=== PATIENT | female | born 1945 | race Hispanic/Latino ===

== ENCOUNTER 2020-10-13 07:55 | Day surgery (SDC) | payer MEDICARE ==
[2020-10-13] MEDS ORDERED: IODIXANOL 320 MG/ML 100 ML VIAL ONE (08:12)
[2020-10-13] MEDS ORDERED: LIDOCAINE HCL 1% MDV 50ML VIAL ONE (08:13)
[2020-10-13 08:23] LABS: BASOPHILS % (AUTO) 0.3 % (0.0-5.0); EOSINOPHILS % (AUTO) 1.5 % (0.0-8.0); HEMATOCRIT 43.4 % (36-48); LYMPHOCYTES % (AUTO) 26.8 % (21.0-51.0); MEAN CORPUSCULAR HEMOGLOBIN 26.7 pg (27.0-33.0); MEAN CORPUSCULAR HGB CONC 31.6 g/dL (32.0-36.0); MEAN CORPUSCULAR VOLUME 84.6 fL (79-99); MONOCYTES % (AUTO) 10.2 % (3.0-13.0); NEUTROPHILS % (AUTO) 60.9 % (40.0-77.0); PLATELET COUNT (AUTO) 213 K/uL (130-400); RED BLOOD CELL COUNT(AUTO) 5.13 MIL/uL (4.00-5.50); RED CELL DISTRIBUTION WIDTH 15.2 % (11.0-15.5)
[2020-10-13 08:32] LABS: POTASSIUM 3.9 mmol/L (3.5-5.1)
[2020-10-13 08:33] LABS: PROTHROMBIN TIME 10.9 SEC (9.6-11.6)
[2020-10-13 08:35] LABS: PARTIAL THROMBOPLASTIN TIME 25.3 SEC (26.3-35.5)
[2020-10-13 08:36] LABS: ALBUMIN 3.3 g/dL (3.5-5.0); BILIRUBIN,TOTAL 0.5 mg/dL (0.2-1.0); TOTAL PROTEIN, SERUM 7.1 g/dL (6.0-8.3)
[2020-10-13] MEDS ORDERED: SODIUM CHLORIDE 0.9% 1000ML 1,000 ML IV ONE (08:47)
== END 2020-10-13 11:10 | disposition home or self-care (01) ==
LOC: DAH 07:55
PROVIDERS: ATTEND Radiology Diagnostic Radiology
DX: I82.409 Acute embolism and thrombosis of unspecified deep veins of unspecified lower extremity (principal); E78.00 Pure hypercholesterolemia, unspecified; F32.9 Major depressive disorder, single episode, unspecified; G30.9 Alzheimer's disease, unspecified; F02.80 Dementia in other diseases classified elsewhere, unspecified severity, without behavioral disturbance, psychotic disturbance, mood disturbance, and anxiety; E03.9 Hypothyroidism, unspecified; E78.2 Mixed hyperlipidemia; E66.01 Morbid (severe) obesity due to excess calories; I13.0 Hypertensive heart and chronic kidney disease with heart failure and stage 1 through stage 4 chronic kidney disease, or unspecified chronic kidney disease; E11.22 Type 2 diabetes mellitus with diabetic chronic kidney disease; N18.2 Chronic kidney disease, stage 2 (mild); I50.32 Chronic diastolic (congestive) heart failure; G47.33 Obstructive sleep apnea (adult) (pediatric); E11.42 Type 2 diabetes mellitus with diabetic polyneuropathy; E11.51 Type 2 diabetes mellitus with diabetic peripheral angiopathy without gangrene; E11.319 Type 2 diabetes mellitus with unspecified diabetic retinopathy without macular edema; I87.329 Chronic venous hypertension (idiopathic) with inflammation of unspecified lower extremity; E11.65 Type 2 diabetes mellitus with hyperglycemia; E11.39 Type 2 diabetes mellitus with other diabetic ophthalmic complication; M17.0 Bilateral primary osteoarthritis of knee; Z79.4 Long term (current) use of insulin; Z82.49 Family history of ischemic heart disease and other diseases of the circulatory system; Z68.41 Body mass index [BMI] 40.0-44.9, adult; Z98.41 Cataract extraction status, right eye; Z98.42 Cataract extraction status, left eye; Z90.49 Acquired absence of other specified parts of digestive tract; Z98.890 Other specified postprocedural states; Z90.89 Acquired absence of other organs; Z83.3 Family history of diabetes mellitus; Z83.438 Family history of other disorder of lipoprotein metabolism and other lipidemia; Z84.1 Family history of disorders of kidney and ureter; Z82.0 Family history of epilepsy and other diseases of the nervous system; Z79.01 Long term (current) use of anticoagulants; Z79.899 Other long term (current) drug therapy
CPT/HCPCS: 36415; 37191; 80053; 82948 ×2; 85025; 85610; 85730; A4215; A4216; A4221; A4222; A4223 ×3; A4606; A4663; C1769; C1880; C1894; J1644; J3490; J7030; Q9967

== ENCOUNTER 2021-02-09 10:14 | Observation (INO) | payer MEDICARE ==
[2021-02-02 13:38] LABS: BASOPHILS % (AUTO) 0.4 % (0.0-5.0); EOSINOPHILS % (AUTO) 0.2 % (0.0-8.0); HEMATOCRIT 42.4 % (36-48); LYMPHOCYTES % (AUTO) 30.9 % (21.0-51.0); MEAN CORPUSCULAR HEMOGLOBIN 27.2 pg (27.0-33.0); MEAN CORPUSCULAR HGB CONC 32.3 g/dL (32.0-36.0); MEAN CORPUSCULAR VOLUME 84.3 fL (79-99); MONOCYTES % (AUTO) 9.3 % (3.0-13.0); NEUTROPHILS % (AUTO) 58.8 % (40.0-77.0); PLATELET COUNT (AUTO) 238 K/uL (130-400); RED BLOOD CELL COUNT(AUTO) 5.03 MIL/uL (4.00-5.50); RED CELL DISTRIBUTION WIDTH 14.5 % (11.0-15.5); WHITE BLOOD COUNT (AUTO) 5.7 K/uL (4.8-10.8)
[2021-02-02 13:47] LABS: CREATININE 0.9 mg/dL (0.5-1.5)
[2021-02-02 13:51] LABS: INR 1.07 (0.85-1.15); PROTHROMBIN TIME 11.6 SEC (9.6-11.6)
[2021-02-02 13:52] LABS: PARTIAL THROMBOPLASTIN TIME 30.2 SEC (26.3-35.5)
[2021-02-08 11:03] VITALS: BP 135/71
[~2021-02-09] VITALS: Ht 160 cm; Wt 102.6 kg
[2021-02-09] VITALS (21 sets, daily range): BP systolic 119–148; BP diastolic 51–66
[~2021-02-09 10:14] MED LIST: APIX5TAB PO; ATOR40TA69 PO; DULA0.75 SQ; FURO40TA5 PO; HYDR-4153 PO; INSU100I21 SQ; LEVO88CA4 PO; LISI20TA24 PO; MELA5CAP PO; NIFE-39 PO; POTA-9 PO; ROPIVICAINE 250MG+KETOROLAC 15MG+EPINEPHRINE 0.3+CLONIDINE 80 IV PRN; VITAD50000 PO; [UNRECOGNIZED DRUG - CODE] PO
[2021-02-09] MEDS ORDERED: 0.9%NACL 1000ML 1,000 ML IV ONE (12:56)
[2021-02-09] MEDS: CEFAZOLIN SODIUM 1 GM VIAL IVP SCH ×3 (13:00→20:10)
[2021-02-09] MEDS ORDERED: ROCURONIUM 10MG/1ML SYR 10 MG/ML ML ONE (13:16)
[2021-02-09] MEDS ORDERED: LIDOCAINE PF 100MG/5ML (2%) SYRINGE 5ML ONE (13:16)
[2021-02-09] MEDS ORDERED: SUCCINYLCHOLINE CHLORIDE 20 MG/ML 10 ML VIAL ONE (13:16)
[2021-02-09] MEDS ORDERED: FENTANYL CITRATE PF 50 MCG/1 ML 2ML VIAL ONE ×2 (13:16→15:42)
[2021-02-09] MEDS ORDERED: TRANEXAMIC ACID 1000MG/10ML ONE ×2 (13:16→13:17)
[2021-02-09] MEDS ORDERED: PROPOFOL 10 MG/ML 20ML VIAL IV ONE (13:16)
[2021-02-09] MEDS ORDERED: ROPIVACAINE 0.5% 5MG/ML 30ML IJ ONE (13:18)
[2021-02-09] MEDS ORDERED: MIDAZOLAM HCL 1 MG/ML 2ML VIAL ONE (14:49)
[2021-02-09] MEDS: ACETAMINOPHEN 500 MG TABLET PO SCH (15:30)
[2021-02-09] MEDS ORDERED: POTASSIUM CHLORIDE 20MEQ/100ML 100 ML IV PRN (15:30)
[2021-02-09] MEDS ORDERED: POTASSIUM CHLORIDE 10% ELIXIR 20 MEQ/15 ML UDCUP PO PRN (15:30)
[2021-02-09] MEDS ORDERED: HYDROCODONE/ACETAMINOPHEN 5/325 MG TAB PO PRN (15:30)
[2021-02-09] MEDS ORDERED: KCL 20 MEQ ERTAB PO PRN (15:30)
[2021-02-09] MEDS ORDERED: ONDANSETRON 4MG INJ IVP PRN (15:30)
[2021-02-09] MEDS ORDERED: LIDOCAINE HCL-MPF 1% 2ML VIAL IV PRN (15:30)
[2021-02-09] MEDS ORDERED: NEOSTIGMINE 5MG/5ML SYR IV ONE (16:58)
[2021-02-09] MEDS ORDERED: GLYCOPYRROLATE 1 MG/5 ML SYRINGE ONE (16:58)
[2021-02-09] MEDS ORDERED: MEPERIDINE-PF 25 MG/ML SYG ONE (17:32)
[2021-02-09] MEDS: 0.9%NACL 1000ML 1,000 ML IV SCH (18:35)
[2021-02-09] MEDS: TRAMADOL HCL 50 MG TABLET PO SCH (18:36)
[2021-02-09] MEDS: APIXABAN 5 MG TABLET PO SCH (20:11)
[2021-02-09] MEDS: MORPHINE 4 MG SYG IVP PRN (20:23)
[2021-02-09] MEDS: MELATONIN 5 MG PO SCH (21:00)
[2021-02-09] MEDS ORDERED: POTASSIUM CHLORIDE 10MEQ SR TAB PO SCH (21:00)
[2021-02-09] MEDS: INSULIN GLARGINE 100 UNITS/ML 10 ML VIAL SQ SCH (21:03)
[2021-02-09] MEDS: NIFEDIPINE ER 30 MG TAB PO SCH (21:05)
[2021-02-10] MEDS: LISINOPRIL 20 MG TABLET PO SCH ×3 (00:01→19:56)
[2021-02-10] MEDS: HYDRALAZINE 25MG TABLET PO SCH ×3 (00:01→19:57)
[2021-02-10] MEDS: TRAMADOL HCL 50 MG TABLET PO SCH ×4 (00:12→19:17)
[2021-02-10] MEDS: ACETAMINOPHEN 500 MG TABLET PO SCH ×4 (00:13→22:57)
[2021-02-10 00:36] VITALS: BP 139/59
[2021-02-10] MEDS: 0.9%NACL 1000ML 1,000 ML IV SCH ×2 (01:30→11:30)
[2021-02-10] MEDS: MORPHINE 4 MG SYG IVP PRN (01:53)
[2021-02-10] MEDS: CEFAZOLIN SODIUM 1 GM VIAL IVP SCH (04:28)
[2021-02-10 04:36] VITALS: BP 126/55
[2021-02-10 05:20] LABS: HEMATOCRIT 35.7 % (36-48); MEAN CORPUSCULAR HEMOGLOBIN 26.6 pg (27.0-33.0); MEAN CORPUSCULAR HGB CONC 32.2 g/dL (32.0-36.0); MEAN CORPUSCULAR VOLUME 82.6 fL (79-99); RED BLOOD CELL COUNT(AUTO) 4.32 MIL/uL (4.00-5.50); RED CELL DISTRIBUTION WIDTH 14.4 % (11.0-15.5); WHITE BLOOD COUNT (AUTO) 8.9 K/uL (4.8-10.8)
[2021-02-10 05:27] LABS: CREATININE 0.9 mg/dL (0.5-1.5); POTASSIUM 3.5 mmol/L (3.5-5.1)
[2021-02-10] MEDS ORDERED: LEVOTHYROXINE 88 MCG TABLET ONE (06:05)
[2021-02-10] MEDS: LEVOTHYROXINE 88 MCG TABLET PO SCH (06:13)
[2021-02-10] MEDS ORDERED: FUROSEMIDE 40 MG TABLET ONE (06:59)
[2021-02-10] MEDS: FUROSEMIDE 40 MG TABLET PO SCH (07:00)
[2021-02-10 07:52] VITALS: BP 133/51
[2021-02-10] MEDS: INSULIN GLARGINE 100 UNITS/ML 10 ML VIAL SQ SCH ×2 (08:00→20:01)
[2021-02-10] MEDS: APIXABAN 5 MG TABLET PO SCH ×2 (09:58→19:56)
[2021-02-10] MEDS: FAMOTIDINE 20MG TAB PO SCH (09:59)
[2021-02-10] MEDS: FENTANYL 25 MCG/HR PATCH TD SCH (10:00)
[2021-02-10] MEDS: POTASSIUM CHLORIDE 10MEQ SR TAB PO SCH (10:01)
[2021-02-10] MEDS: POLYETHYLENE GLYCOL 3350 17 GM POWD.PACK PO SCH (10:01)
[2021-02-10 11:18] VITALS: BP 115/50
[2021-02-10 16:15] VITALS: BP 125/71
[2021-02-10 19:52] VITALS: BP 114/52
[2021-02-10] MEDS: NIFEDIPINE ER 30 MG TAB PO SCH (19:56)
[2021-02-10] MEDS: MELATONIN 5 MG PO SCH (19:58)
[2021-02-11 00:10] VITALS: BP 127/52
[2021-02-11] MEDS: TRAMADOL HCL 50 MG TABLET PO SCH ×5 (00:43→22:38)
[2021-02-11 04:24] VITALS: BP 121/50
[2021-02-11] MEDS: LEVOTHYROXINE 88 MCG TABLET PO SCH (06:06)
[2021-02-11] MEDS: ACETAMINOPHEN 500 MG TABLET PO SCH ×3 (06:09→22:37)
[2021-02-11 08:09] VITALS: BP 123/51
[2021-02-11] MEDS: LISINOPRIL 20 MG TABLET PO SCH ×3 (08:24→21:00)
[2021-02-11] MEDS: HYDRALAZINE 25MG TABLET PO SCH ×3 (08:24→21:00)
[2021-02-11] MEDS: APIXABAN 5 MG TABLET PO SCH ×2 (08:24→20:46)
[2021-02-11] MEDS: POTASSIUM CHLORIDE 10MEQ SR TAB PO SCH (08:25)
[2021-02-11] MEDS: POLYETHYLENE GLYCOL 3350 17 GM POWD.PACK PO SCH (08:25)
[2021-02-11] MEDS: FAMOTIDINE 20MG TAB PO SCH (08:25)
[2021-02-11] MEDS: FUROSEMIDE 40 MG TABLET PO SCH (08:25)
[2021-02-11] MEDS: OXYCODONE HCL 5 MG TAB PO PRN ×2 (08:26→16:56)
[2021-02-11] MEDS: INSULIN GLARGINE 100 UNITS/ML 10 ML VIAL SQ SCH ×2 (08:30→20:48)
[2021-02-11 11:04] VITALS: BP 138/63
[2021-02-11 16:30] VITALS: BP 130/47
[2021-02-11 19:00] VITALS: BP 120/48
[2021-02-11] MEDS: NIFEDIPINE ER 30 MG TAB PO SCH (20:46)
[2021-02-11] MEDS: MELATONIN 5 MG PO SCH (20:47)
[2021-02-12] VITALS (7 sets, daily range): BP systolic 114–141; BP diastolic 46–65
[2021-02-12] MEDS: LEVOTHYROXINE 88 MCG TABLET PO SCH (05:25)
[2021-02-12] MEDS: TRAMADOL HCL 50 MG TABLET PO SCH ×4 (05:26→23:32)
[2021-02-12] MEDS: ACETAMINOPHEN 500 MG TABLET PO SCH ×3 (05:26→23:34)
[2021-02-12] MEDS: POLYETHYLENE GLYCOL 3350 17 GM POWD.PACK PO SCH (09:00)
[2021-02-12] MEDS: POTASSIUM CHLORIDE 10MEQ SR TAB PO SCH (09:00)
[2021-02-12] MEDS: HYDRALAZINE 25MG TABLET PO SCH ×2 (09:09→21:07)
[2021-02-12] MEDS: FUROSEMIDE 40 MG TABLET PO SCH (09:10)
[2021-02-12] MEDS: APIXABAN 5 MG TABLET PO SCH ×2 (09:11→21:05)
[2021-02-12] MEDS: FAMOTIDINE 20MG TAB PO SCH (09:11)
[2021-02-12] MEDS: LISINOPRIL 20 MG TABLET PO SCH ×2 (09:11→21:08)
[2021-02-12] MEDS: MORPHINE 4 MG SYG IVP PRN (09:12)
[2021-02-12] MEDS: INSULIN GLARGINE 100 UNITS/ML 10 ML VIAL SQ SCH ×2 (09:27→21:16)
[2021-02-12] MEDS ORDERED: BISACODYL 10 MG SUPP.RECT RC PRN (15:30)
[2021-02-12] MEDS: MELATONIN 5 MG PO SCH (21:00)
[2021-02-12] MEDS: NIFEDIPINE ER 30 MG TAB PO SCH (21:05)
[2021-02-12] MEDS: OXYCODONE HCL 5 MG TAB PO PRN (22:09)
[2021-02-13] MEDS: OXYCODONE HCL 5 MG TAB PO PRN ×3 (03:15→21:11)
[2021-02-13 04:10] VITALS: BP 120/55
[2021-02-13] MEDS: TRAMADOL HCL 50 MG TABLET PO SCH ×4 (05:40→23:47)
[2021-02-13] MEDS: ACETAMINOPHEN 500 MG TABLET PO SCH ×3 (05:40→16:55)
[2021-02-13] MEDS: LEVOTHYROXINE 88 MCG TABLET PO SCH (05:40)
[2021-02-13 08:00] VITALS: BP 114/49
[2021-02-13] MEDS: INSULIN GLARGINE 100 UNITS/ML 10 ML VIAL SQ SCH ×2 (08:00→21:07)
[2021-02-13] MEDS: HYDRALAZINE 25MG TABLET PO SCH ×2 (08:27→20:20)
[2021-02-13] MEDS: POLYETHYLENE GLYCOL 3350 17 GM POWD.PACK PO SCH (08:27)
[2021-02-13] MEDS: LISINOPRIL 20 MG TABLET PO SCH ×2 (08:27→20:20)
[2021-02-13] MEDS: POTASSIUM CHLORIDE 10MEQ SR TAB PO SCH (08:28)
[2021-02-13] MEDS: APIXABAN 5 MG TABLET PO SCH ×2 (08:28→20:20)
[2021-02-13] MEDS: FAMOTIDINE 20MG TAB PO SCH (08:28)
[2021-02-13] MEDS: FUROSEMIDE 40 MG TABLET PO SCH (08:28)
[2021-02-13] MEDS: FENTANYL 25 MCG/HR PATCH TD SCH (08:29)
[2021-02-13 10:52] LABS: APPEARANCE,URINE Clear (CLEAR); BILIRUBIN,URINE Negative (NEGATIVE); COLOR,URINE Yellow (YELLOW); GLUCOSE, URINE (UA) Negative (NEGATIVE); KETONES,URINE Negative (NEGATIVE); LEUKOCYTE ESTERASE ,URINE Trace (NEGATIVE); NITRATE,URINE Negative (NEGATIVE); OCCULT BLOOD,URINE Negative (NEGATIVE); PH,URINE 6.5 (5.0-8.0); PROTEIN,URINE Negative (NEGATIVE)
[2021-02-13 11:07] LABS: BACTERIA,URINE Rare /HPF (None Seen); RBC,URINE 0-1 /HPF (0-1); SQUAMOUS EPITHELIAL CELL,UR Rare /HPF (0-2); WBC,URINE 0-1 /HPF (0-1)
[2021-02-13 11:53] VITALS: BP 136/52
[2021-02-13 16:00] VITALS: BP 132/54
[2021-02-13 19:39] VITALS: BP 140/54
[2021-02-13] MEDS: NIFEDIPINE ER 30 MG TAB PO SCH (20:19)
[2021-02-13] MEDS: MELATONIN 5 MG PO SCH (21:00)
[2021-02-13 23:52] VITALS: BP 138/52
[2021-02-14] MEDS: OXYCODONE HCL 5 MG TAB PO PRN ×2 (02:28→09:19)
[2021-02-14 03:39] VITALS: BP 141/69
[2021-02-14] MEDS: ACETAMINOPHEN 500 MG TABLET PO SCH (03:44)
[2021-02-14] MEDS: LEVOTHYROXINE 88 MCG TABLET PO SCH (05:21)
[2021-02-14] MEDS: TRAMADOL HCL 50 MG TABLET PO SCH ×2 (05:21→11:44)
[2021-02-14 08:00] VITALS: BP 133/50
[2021-02-14] MEDS: POTASSIUM CHLORIDE 10MEQ SR TAB PO SCH (09:11)
[2021-02-14] MEDS: FUROSEMIDE 40 MG TABLET PO SCH (09:11)
[2021-02-14] MEDS: LISINOPRIL 20 MG TABLET PO SCH ×2 (09:12→19:47)
[2021-02-14] MEDS: FAMOTIDINE 20MG TAB PO SCH (09:12)
[2021-02-14] MEDS: APIXABAN 5 MG TABLET PO SCH ×2 (09:12→19:46)
[2021-02-14] MEDS: HYDRALAZINE 25MG TABLET PO SCH ×2 (09:12→19:46)
[2021-02-14] MEDS: POLYETHYLENE GLYCOL 3350 17 GM POWD.PACK PO SCH (09:12)
[2021-02-14] MEDS: INSULIN GLARGINE 100 UNITS/ML 10 ML VIAL SQ SCH ×2 (09:16→20:59)
[2021-02-14 12:00] VITALS: BP 156/86
[2021-02-14] MEDS ORDERED: HYDROCODONE/ACETAMINOPHEN 5/325 MG TAB PO SCH ×2 (15:00→18:00)
[2021-02-14 16:00] VITALS: BP 141/62
[2021-02-14] MEDS: INSULIN HUMULIN R 100 UNIT/ML 3ML SQ SCH ×2 (16:30→21:00)
[2021-02-14 19:00] VITALS: BP 147/53
[2021-02-14] MEDS ORDERED: HYDROCODONE/ACETAMINOPHEN 5/325 MG TAB ONE (19:41)
[2021-02-14] MEDS: NIFEDIPINE ER 30 MG TAB PO SCH (19:46)
[2021-02-14] MEDS: HYDROCODONE/ACETAMINOPHEN 5/325 MG TAB PO SCH (19:48)
[2021-02-14] MEDS: MELATONIN 5 MG PO SCH (20:44)
[2021-02-14 23:57] VITALS: BP 125/51
[2021-02-15] MEDS: HYDROCODONE/ACETAMINOPHEN 5/325 MG TAB PO SCH ×4 (02:06→20:17)
[2021-02-15 03:45] VITALS: BP 150/58
[2021-02-15] MEDS: LEVOTHYROXINE 88 MCG TABLET PO SCH (05:31)
[2021-02-15] MEDS: INSULIN HUMULIN R 100 UNIT/ML 3ML SQ SCH ×4 (05:41→20:12)
[2021-02-15 07:30] VITALS: BP 148/56
[2021-02-15] MEDS: APIXABAN 5 MG TABLET PO SCH ×2 (08:34→20:14)
[2021-02-15] MEDS: LISINOPRIL 20 MG TABLET PO SCH ×2 (08:35→20:14)
[2021-02-15] MEDS: HYDRALAZINE 25MG TABLET PO SCH ×2 (08:35→20:14)
[2021-02-15] MEDS: FUROSEMIDE 40 MG TABLET PO SCH (08:37)
[2021-02-15] MEDS: FAMOTIDINE 20MG TAB PO SCH (08:37)
[2021-02-15] MEDS: POLYETHYLENE GLYCOL 3350 17 GM POWD.PACK PO SCH (08:37)
[2021-02-15] MEDS: POTASSIUM CHLORIDE 10MEQ SR TAB PO SCH (08:37)
[2021-02-15] MEDS: INSULIN GLARGINE 100 UNITS/ML 10 ML VIAL SQ SCH (08:43)
[2021-02-15] MEDS ORDERED: DULOXETINE HCL 30 MG CAP PO SCH (09:00)
[2021-02-15 11:00] VITALS: BP 136/48
[2021-02-15 16:00] VITALS: BP 135/55
[2021-02-15] MEDS: NIFEDIPINE ER 30 MG TAB PO SCH (20:14)
[2021-02-15] MEDS: MELATONIN 5 MG PO SCH (20:17)
[2021-02-15 20:34] VITALS: BP 157/72
[2021-02-15 23:29] VITALS: BP 143/58
[2021-02-16] MEDS ORDERED: **HM**(Dulaglutide (Trulicity) 0.75 MG SQ SCH (09:00)
== END 2021-02-16 00:57 ==
LOC: DAH 10:14 → DAHIP 10:15 → EDSTATUS 12:33 → 4BH 18:31
PROVIDERS: ADMIT Orthopaedic Surgery; ATTEND Orthopaedic Surgery
DX: M17.11 Unilateral primary osteoarthritis, right knee (principal); Z20.822 Contact with and (suspected) exposure to COVID-19; M21.061 Valgus deformity, not elsewhere classified, right knee; E66.01 Morbid (severe) obesity due to excess calories; E11.9 Type 2 diabetes mellitus without complications; I10 Essential (primary) hypertension; E78.00 Pure hypercholesterolemia, unspecified; Z79.01 Long term (current) use of anticoagulants; Z79.899 Other long term (current) drug therapy; Z68.41 Body mass index [BMI] 40.0-44.9, adult
CPT/HCPCS: 27447; 36415 ×2; 73560 ×2; 73562; 80048 ×2; 81001 ×2; 82948 ×26; 85025; 85027; 85610; 85730; 87635; 87641 ×2; 93005; 96361 ×2; 96374; 96375; 96376 ×2; 97039 ×10; 97116 ×9; 97161; 97530 ×8; A4213; A4215; A4216; A4221; A4222; A4223 ×2; A4600; A4649 ×6; A4663; A4930; A5120; A6212; A6219; A6260; C1776; C9803; G0378 ×147; J0171; J0330; J0690 ×3; J0735; J1885; J2001; J2175; J2250; J2270 ×3; J2704; J2710; J2795 ×2; J3010 ×2; J3490 ×3; J7030

== ENCOUNTER 2021-11-02 06:09 | Observation (INO) | payer OTHER ==
[2021-10-28 12:23] LABS: BASOPHILS % (AUTO) 0.5 % (0.0-5.0); EOSINOPHILS % (AUTO) 0.2 % (0.0-8.0); LYMPHOCYTES % (AUTO) 27.6 % (21.0-51.0); MEAN CORPUSCULAR HEMOGLOBIN 26.1 pg (27.0-33.0); MEAN CORPUSCULAR HGB CONC 31.7 g/dL (32.0-36.0); MEAN CORPUSCULAR VOLUME 82.2 fL (79-99); NEUTROPHILS % (AUTO) 60.5 % (40.0-77.0); PLATELET COUNT (AUTO) 230 K/uL (130-400); RED BLOOD CELL COUNT(AUTO) 4.99 MIL/uL (4.00-5.50); RED CELL DISTRIBUTION WIDTH 14.1 % (11.0-15.5); WHITE BLOOD COUNT (AUTO) 5.8 K/uL (4.8-10.8)
[2021-10-28 12:31] LABS: CREATININE 0.7 mg/dL (0.5-1.5); POTASSIUM 4.4 mmol/L (3.5-5.1)
[2021-10-28 12:33] LABS: INR 0.99 (0.85-1.15); PROTHROMBIN TIME 10.8 SEC (9.6-11.6)
[2021-10-28 12:35] LABS: PARTIAL THROMBOPLASTIN TIME 29.6 SEC (26.3-35.5)
[2021-11-01 11:16] VITALS: BP_SYST 179; BP_SYST 202; BP_DIAS 101; BP_DIAS 77
[2021-11-02] VITALS (25 sets, daily range): BP systolic 147–173; BP diastolic 56–83
[~2021-11-02] VITALS: Ht 162.6 cm; Wt 97.1 kg
[2021-11-02] MEDS: CEFAZOLIN SODIUM 2 GM VIAL IV SCH ×2 (05:00→10:10)
[~2021-11-02 06:09] MED LIST changes: +CALC-1105 PO; -INSU100I21 SQ; +INSU3INS3 SQ; -LISI20TA24 PO; +POTA-10 PO; -POTA-9 PO; -[UNRECOGNIZED DRUG - CODE] PO
[2021-11-02] MEDS ORDERED: CEFAZOLIN SODIUM 1 GM VIAL ONE (07:21)
[2021-11-02] MEDS ORDERED: 0.9%NACL 1000ML 1,000 ML IV ONE (07:21)
[2021-11-02] MEDS ORDERED: GABA300C PO (07:38)
[2021-11-02] MEDS ORDERED: DULO60CA64 PO (07:38)
[2021-11-02] MEDS ORDERED: SODI15DR8 OU (07:38)
[2021-11-02] MEDS ORDERED: LIDOCAINE PF 100MG/5ML (2%) SYRINGE 5ML ONE (07:52)
[2021-11-02] MEDS ORDERED: SUCCINYLCHOLINE CHLORIDE 20 MG/ML 10 ML VIAL ONE (07:52)
[2021-11-02] MEDS ORDERED: ONDANSETRON 4MG INJ ONE (07:52)
[2021-11-02] MEDS ORDERED: SUCCINYLCHOLINE 200MG/10ML SYR ONE (07:52)
[2021-11-02] MEDS ORDERED: NEOSTIGMINE 5MG/5ML SYR IV ONE (07:53)
[2021-11-02] MEDS ORDERED: PROPOFOL 10 MG/ML 20ML VIAL IV ONE (07:53)
[2021-11-02] MEDS ORDERED: GLYCOPYRROLATE 1 MG/5 ML SYRINGE ONE (07:53)
[2021-11-02] MEDS ORDERED: DEXAMETHASONE SOD PHOSPHATE 10MG/ML 1ML VIAL ONE (07:53)
[2021-11-02] MEDS ORDERED: ROCURONIUM 10MG/1ML SYR 10 MG/ML ML ONE (07:53)
[2021-11-02] MEDS ORDERED: MIDAZOLAM HCL 1 MG/ML 2ML VIAL ONE (07:53)
[2021-11-02] MEDS ORDERED: FENTANYL CITRATE PF 50 MCG/1 ML 2ML VIAL ONE ×2 (07:54→11:55)
[2021-11-02] MEDS ORDERED: TRANEXAMIC ACID 1000MG/10ML ONE (07:55)
[2021-11-02] MEDS: ACETAMINOPHEN 500 MG TABLET PO SCH ×2 (10:30→18:42)
[2021-11-02] MEDS ORDERED: KCL 20 MEQ ERTAB PO PRN (10:30)
[2021-11-02] MEDS ORDERED: POTASSIUM CHLORIDE 10% ELIXIR 20 MEQ/15 ML UDCUP PO PRN (10:30)
[2021-11-02] MEDS ORDERED: LIDOCAINE HCL-MPF 1% 2ML VIAL IV PRN (10:30)
[2021-11-02] MEDS ORDERED: HYDROCODONE/ACETAMINOPHEN 10/325 MG TAB PO PRN (10:30)
[2021-11-02] MEDS ORDERED: ONDANSETRON 4MG INJ IVP PRN (10:30)
[2021-11-02] MEDS ORDERED: POTASSIUM CHLORIDE 20MEQ/100ML 100 ML IV PRN (10:30)
[2021-11-02] MEDS ORDERED: KETOROLAC 15MG/ML VIAL (15MG/ML) IV PRN (10:30)
[2021-11-02] MEDS ORDERED: HYDROCODONE/ACETAMINOPHEN 5/325 MG TAB PO PRN (10:30)
[2021-11-02] MEDS: 0.9%NACL 1000ML 1,000 ML IV SCH ×2 (10:30→20:30)
[2021-11-02] MEDS: INSULIN HUMULIN R 100 UNIT/ML 3ML SQ SCH ×3 (11:30→20:32)
[2021-11-02] MEDS ORDERED: KETOROLAC 30MG VIAL (30MG/ML) ONE (11:40)
[2021-11-02] MEDS: TRAMADOL HCL 50 MG TABLET PO SCH ×3 (12:00→23:52)
[2021-11-02] MEDS ORDERED: LABETALOL 20MG SYG IV ONE (12:52)
[2021-11-02] MEDS: MORPHINE 4 MG SYG IVP PRN ×2 (14:45→18:47)
[2021-11-02] MEDS: CEFAZOLIN SODIUM 1 GM VIAL IVP SCH ×2 (18:41→23:51)
[2021-11-02] MEDS: GABAPENTIN 300 MG CAPSULE PO SCH (20:31)
[2021-11-02] MEDS: HYDRALAZINE 25MG TABLET PO SCH (20:31)
[2021-11-02] MEDS: FAMOTIDINE 20MG TAB PO SCH (20:31)
[2021-11-02] MEDS: NIFEDIPINE ER 30 MG TAB PO SCH (20:31)
[2021-11-02] MEDS: **HM** MELATONIN 5MG PO SCH (20:32)
[2021-11-02] MEDS: APIXABAN 5 MG TABLET PO SCH (20:32)
[2021-11-03] VITALS: BP 183/84
[2021-11-03] MEDS: MORPHINE 4 MG SYG IVP PRN (02:01)
[2021-11-03] MEDS: ACETAMINOPHEN 500 MG TABLET PO SCH ×3 (02:01→17:09)
[2021-11-03] MEDS: CEFAZOLIN SODIUM 2 GM VIAL IV SCH (02:52)
[2021-11-03 03:35] LABS: HEMATOCRIT 39.3 % (36-48); MEAN CORPUSCULAR HEMOGLOBIN 25.6 pg (27.0-33.0); MEAN CORPUSCULAR HGB CONC 31.6 g/dL (32.0-36.0); RED BLOOD CELL COUNT(AUTO) 4.85 MIL/uL (4.00-5.50); RED CELL DISTRIBUTION WIDTH 14.1 % (11.0-15.5); WHITE BLOOD COUNT (AUTO) 10.1 K/uL (4.8-10.8)
[2021-11-03 03:45] LABS: CREATININE 0.8 mg/dL (0.5-1.5)
[2021-11-03 04:00] VITALS: BP 153/84
[2021-11-03] MEDS: TRAMADOL HCL 50 MG TABLET PO SCH ×3 (05:55→17:09)
[2021-11-03] MEDS: 0.9%NACL 1000ML 1,000 ML IV SCH (05:56)
[2021-11-03] MEDS: INSULIN HUMULIN R 100 UNIT/ML 3ML SQ SCH ×4 (06:45→21:00)
[2021-11-03 08:00] VITALS: BP 148/67
[2021-11-03] MEDS: SODIUM CHLORIDE 5% 15 ML OPHTH SOLN OU SCH (09:00)
[2021-11-03] MEDS: HYDRALAZINE 25MG TABLET PO SCH ×2 (09:57→22:15)
[2021-11-03] MEDS: FAMOTIDINE 20MG TAB PO SCH ×2 (09:57→22:14)
[2021-11-03] MEDS: LEVOTHYROXINE 88 MCG TABLET PO SCH (09:57)
[2021-11-03] MEDS: APIXABAN 5 MG TABLET PO SCH ×2 (09:57→22:14)
[2021-11-03] MEDS: DULOXETINE HCL 30 MG CAP PO SCH (09:57)
[2021-11-03] MEDS: CA 600MG+VIT D 400 UNIT TAB 1 TAB TABLET PO SCH (09:57)
[2021-11-03] MEDS: POLYETHYLENE GLYCOL 3350 17 GM POWD.PACK PO SCH (09:58)
[2021-11-03] MEDS: INSULIN GLARGINE 100 UNITS/ML 10 ML VIAL SQ SCH (10:08)
[2021-11-03 12:00] VITALS: BP 173/71
[2021-11-03 16:30] VITALS: BP 154/68
[2021-11-03] MEDS: **HM** MELATONIN 5MG PO SCH (21:00)
[2021-11-03 21:51] VITALS: BP 139/52
[2021-11-03] MEDS: GABAPENTIN 300 MG CAPSULE PO SCH (22:15)
[2021-11-03] MEDS: NIFEDIPINE ER 30 MG TAB PO SCH (22:15)
[2021-11-04 00:24] VITALS: BP 140/63
[2021-11-04] MEDS: TRAMADOL HCL 50 MG TABLET PO SCH ×3 (00:25→12:26)
[2021-11-04] MEDS: ACETAMINOPHEN 500 MG TABLET PO SCH ×2 (02:30→10:58)
[2021-11-04 04:15] VITALS: BP 167/68
[2021-11-04 07:30] VITALS: BP 150/62
[2021-11-04] MEDS: INSULIN HUMULIN R 100 UNIT/ML 3ML SQ SCH ×3 (07:30→16:30)
[2021-11-04] MEDS: LEVOTHYROXINE 88 MCG TABLET PO SCH (07:54)
[2021-11-04] MEDS: SODIUM CHLORIDE 5% 15 ML OPHTH SOLN OU SCH (09:00)
[2021-11-04] MEDS ORDERED: LABETALOL 20MG SYG IV PRN (10:00)
[2021-11-04] MEDS: POLYETHYLENE GLYCOL 3350 17 GM POWD.PACK PO SCH (10:23)
[2021-11-04] MEDS: HYDRALAZINE 25MG TABLET PO SCH (10:24)
[2021-11-04] MEDS: DULOXETINE HCL 30 MG CAP PO SCH (10:24)
[2021-11-04] MEDS: FAMOTIDINE 20MG TAB PO SCH (10:24)
[2021-11-04] MEDS: APIXABAN 5 MG TABLET PO SCH (10:25)
[2021-11-04] MEDS: CA 600MG+VIT D 400 UNIT TAB 1 TAB TABLET PO SCH (10:56)
[2021-11-04] MEDS: INSULIN GLARGINE 100 UNITS/ML 10 ML VIAL SQ SCH (10:57)
[2021-11-04 11:00] VITALS: BP 137/61
[2021-11-04] MEDS ORDERED: HYDR-4060 PO (14:28)
[2021-11-04] MEDS ORDERED: PANT40TA54 PO (14:32)
[2021-11-04] MEDS ORDERED: CLON0.1T PO (14:34)
[2021-11-04] MEDS ORDERED: CLONIDINE HCL 0.1 MG TABLET PO PRN (15:00)
[2021-11-04 16:00] VITALS: BP 118/43
[2021-11-04 20:54] VITALS: BP 146/66
[2021-11-05] MEDS ORDERED: BISACODYL 10 MG SUPP.RECT RC PRN (10:30)
[2021-11-09] MEDS ORDERED: **HM** TRULICITY 0.75MG SQ SCH (09:00)
== END 2021-11-04 21:13 ==
LOC: DAH 06:09 → DAHIP 06:10 → 4BH 13:43
PROVIDERS: ADMIT Orthopaedic Surgery; ATTEND Orthopaedic Surgery
DX: M17.12 Unilateral primary osteoarthritis, left knee (principal); Z20.822 Contact with and (suspected) exposure to COVID-19; M21.162 Varus deformity, not elsewhere classified, left knee; M24.562 Contracture, left knee; E11.22 Type 2 diabetes mellitus with diabetic chronic kidney disease; I13.0 Hypertensive heart and chronic kidney disease with heart failure and stage 1 through stage 4 chronic kidney disease, or unspecified chronic kidney disease; I50.32 Chronic diastolic (congestive) heart failure; N18.9 Chronic kidney disease, unspecified; E03.9 Hypothyroidism, unspecified; E78.2 Mixed hyperlipidemia; G47.33 Obstructive sleep apnea (adult) (pediatric); K21.9 Gastro-esophageal reflux disease without esophagitis; E11.42 Type 2 diabetes mellitus with diabetic polyneuropathy; E11.3219 Type 2 diabetes mellitus with mild nonproliferative diabetic retinopathy with macular edema, unspecified eye; H54.62 Unqualified visual loss, left eye, normal vision right eye; E66.9 Obesity, unspecified; D68.69 Other thrombophilia; I87.8 Other specified disorders of veins; Z68.39 Body mass index [BMI] 39.0-39.9, adult; Z79.01 Long term (current) use of anticoagulants; Z79.4 Long term (current) use of insulin; Z79.899 Other long term (current) drug therapy; Z86.718 Personal history of other venous thrombosis and embolism; Z95.828 Presence of other vascular implants and grafts; Z96.651 Presence of right artificial knee joint
CPT/HCPCS: 0055T; 27447; 36415; 64447; 76942; 80048; 82948; 85025; 85027; 85610; 85730; 87635; 87641; 93005; 96374; 96375; 96376; 97039; C9803; G0378; J0171; J0330; J0690; J0735; J1100; J1885; J2001; J2250; J2270; J2405; J2704; J2710; J2795; J3010; J3490; J7030

== ENCOUNTER → 2022-09-08 | Outpatient (CLI) | payer OTHER ==
[~2022-09-08] VITALS: Ht 160 cm; Wt 98.1 kg
[~2022-09-08] MED LIST changes: +CLON0.1T PO; +DILT180T12 PO; +DULO60CA64 PO; +GABA300C PO; +HYDR-4060 PO; +INSU300I SQ; +LEVO88TA72 PO; +METO100T14 PO; +PANT40TA54 PO; -POTA-10 PO; +POTA-200 PO; -ROPIVICAINE 250MG+KETOROLAC 15MG+EPINEPHRINE 0.3+CLONIDINE 80 IV PRN; +SODI15DR8 OS; +[UNRECOGNIZED DRUG - CODE] OS
[2022-09-08 12:21] LABS: BASOPHILS % (AUTO) 0.4 % (0.0-5.0); EOSINOPHILS % (AUTO) 0.2 % (0.0-8.0); HEMATOCRIT 42.2 % (36-48); LYMPHOCYTES % (AUTO) 32.4 % (21.0-51.0); MEAN CORPUSCULAR HEMOGLOBIN 27.1 pg (27.0-33.0); MEAN CORPUSCULAR HGB CONC 31.8 g/dL (32.0-36.0); MEAN CORPUSCULAR VOLUME 85.4 fL (79-99); MONOCYTES % (AUTO) 10.1 % (3.0-13.0); NEUTROPHILS % (AUTO) 56.7 % (40.0-77.0); PLATELET COUNT (AUTO) 239 K/uL (130-400); RED BLOOD CELL COUNT(AUTO) 4.94 MIL/uL (4.00-5.50); RED CELL DISTRIBUTION WIDTH 14.6 % (11.0-15.5); WHITE BLOOD COUNT (AUTO) 5.1 K/uL (4.8-10.8)
[2022-09-08 12:23] VITALS: BP 153/72
[2022-09-08 12:52] LABS: ALBUMIN 3.4 g/dL (3.5-5.0); CREATININE 0.8 mg/dL (0.5-1.5); POTASSIUM 4.1 mmol/L (3.5-5.1); TOTAL PROTEIN, SERUM 6.9 g/dL (6.0-8.3)
[2022-09-08 12:56] LABS: HEMOGLOBIN A1C 10.8 % (4.0-6.0)
== END | disposition home or self-care (01) ==
LOC: DAH 10:00 → EDSTATUS 11:30
PROVIDERS: ATTEND Internal Medicine
DX: Z01.818 Encounter for other preprocedural examination (principal); Z20.822 Contact with and (suspected) exposure to COVID-19; I82.409 Acute embolism and thrombosis of unspecified deep veins of unspecified lower extremity; Z79.01 Long term (current) use of anticoagulants; Z79.899 Other long term (current) drug therapy
CPT/HCPCS: 36415; 80053; 82043; 83036; 83970; 84443; 85025

== ENCOUNTER → 2023-07-28 | Outpatient (CLI) | payer OTHER ==
[~2023-07-28] MED LIST changes: -CLON0.1T PO; -DULA0.75 SQ; -FURO40TA5 PO; -HYDR-4060 PO; -HYDR-4153 PO; -INSU3INS3 SQ; -LEVO88CA4 PO; -MELA5CAP PO; -NIFE-39 PO; -PANT40TA54 PO; -POTA-200 PO
== END | disposition home or self-care (01) ==
LOC: RAH 14:24
PROVIDERS: ATTEND Internal Medicine
DX: S00.03XA Contusion of scalp, initial encounter (principal); G31.9 Degenerative disease of nervous system, unspecified; X58.XXXA Exposure to other specified factors, initial encounter; Y93.89 Activity, other specified; Y92.89 Other specified places as the place of occurrence of the external cause; Y99.8 Other external cause status
CPT/HCPCS: 70450

== ENCOUNTER → 2024-04-01 | Outpatient (CLI) | payer OTHER ==
--- NOTE | 2024-04-01 15:12 | HMCIMG ---
ORBITS COMP 4+VWS REASON: CONTUSION OF EYEBALL, LEFT EYE, INITIAL ENCOUNTER TECHNIQUE: 3 views were obtained. FINDINGS: There is no evidence of fracture or dislocation. Paranasal sinuses are normally aerated. The soft tissues appear unremarkable. There is no evidence of a radiopaque foreign body. IMPRESSION: No acute findings.
== END | disposition home or self-care (01) ==
LOC: RAH 12:31
PROVIDERS: ATTEND Internal Medicine
DX: S05.12XA Contusion of eyeball and orbital tissues, left eye, initial encounter (principal); X58.XXXA Exposure to other specified factors, initial encounter; Y93.89 Activity, other specified; Y92.89 Other specified places as the place of occurrence of the external cause; Y99.8 Other external cause status
CPT/HCPCS: 70200